=== PATIENT | male | born 2005 | race Caucasian/White ===

== ENCOUNTER 2024-07-12 07:21 | Emergency (ER) | payer SELFPAY ==
[2024-07-12] MEDS: Ketorolac 30 MG/ML SDV IM ONE (07:46)
[2024-07-12] MEDS: Diphtheria,Pertussis(Acell),Tetanus Vaccine 0.5 ML Syringe IM ONE (08:41)
== END 2024-07-12 08:45 | disposition home or self-care (01) ==
LOC: JD.ED 07:21
DX: S61.231A Puncture wound without foreign body of left index finger without damage to nail, initial encounter (principal); Z23 Encounter for immunization; W29.4XXA Contact with nail gun, initial encounter
CPT/HCPCS: 73140; 90471; 90715; 96372; 99283; J1885